=== PATIENT | male | born 1980 | race Caucasian/White ===

== ENCOUNTER 2022-09-17 09:49 | Outpatient (REF) | payer BC, SELFPAY ==
[2022-09-17 11:18] LABS: MANUAL DIFF FLAG NO
[2022-09-17 11:28] LABS: Basophils Percent Auto 0.3 % (0-2); Eosinophils Absolute Auto 0.1 X10*3/uL (0.0-0.4); Eosinophils Percent Auto 1.9 % (0-4); Hematocrit 41.7 % (42.0-52.0); Imm Gran Abs Auto 0.01 X10*3/uL (0.00-0.03); Imm Gran Pct Auto 0.2 % (0.0-0.4); Lymphocytes Percent Auto 31.5 % (20-40); Mean Corpuscular HGB Conc 33.6 g/dl (31.0-36.0); Mean Corpuscular Hemoglobin 28.3 pg (27.0-33.0); Mean Corpuscular Volume 84.4 fL (80.0-98.0); Mean Platelet Volume 11.8 fL (9.4-12.4); Monocytes Absolute Auto 0.5 X10*3/uL (0.1-1.2); Monocytes Percent Auto 7.9 % (2-11); Neutrophils Absolute Auto 3.6 x10*3/uL (2.0-8.3); Neutrophils Percent Auto 58.2 % (45-73); Platelet Count 187 X10*3/uL (160-400); Red Blood Count 4.94 X10*6/uL (4.60-5.80); Red Cell Distribution Width 13.3 % (11.0-16.0); White Blood Count 6.2 X10*3/uL (4.8-10.8)
[2022-09-17 12:44] LABS: Alanine Aminotransferase 20 U/L (0-40); Albumin Level 4.6 g/dL (3.5-5.0); Alkaline Phosphatase 52 U/L (39-117); Anion Gap 16 (12-20); Aspartate Amino Transferase 20 U/L (5-37); Bilirubin Total 0.6 mg/dL (0.0-1.0); Blood Urea Nitrogen 20 mg/dL (9-16); Calcium 9.6 mg/dL (8.4-10.2); Carbon Dioxide 27 mmol/L (22-29); Chloride 105 mmol/L (96-108); Cholesterol 211 mg/dL; Estimated Glomerular Filt Rate > 60; Glucose Random 85 mg/dL (60-115); HDL Cholesterol 54 mg/dL; LDL Cholesterol Calculated 142 mg/dl; Potassium 4.6 mmol/L (3.3-5.1); Sodium 143 mmol/L (135-145); Total Protein 7.6 g/dL (6.5-8.0); Triglycerides 78 mg/dL
== END 2022-09-17 09:50 | disposition home or self-care (01) ==
LOC: HO.MANLDS 09:49
PROVIDERS: Visit Provider Internal Medicine
DX: Z13.220 Encounter for screening for lipoid disorders (principal)
CPT/HCPCS: 36415; 80053; 80061; 85025

== ENCOUNTER 2023-02-18 09:54 | Outpatient (REF) | payer BC, SELFPAY ==
--- NOTE | ~2023-02-18 | XR_ITS ---
EXAMINATION: XR ANKLE, LEFT CLINICAL INFORMATION: Chronic pain. COMPARISON: None available. TECHNIQUE: AP, lateral, and mortise views of the left ankle. FINDINGS: Bony mineralization is normal. The ankle mortise is intact. 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 A syndesmotic screw is seen traversing the distal tibia and fibula. No fracture, dislocation is seen. There is a moderate joint effusion. A crescentic loose body is seen anteriorly within the left ankle joint space. A sclerotic benign bone island is incidentally seen within the distal left tibial metaphysis. Boehler's angle is normal. There is no calcaneal spur. The soft tissue planes are unremarkable. XR/XR ankle LT min 3V IMPRESSION: 1. No fracture or dislocation is seen. 2. There is a moderate left ankle joint effusion, and a loose body is suspected anteriorly within the left ankle joint space. 3. 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 4. A syndesmotic screw is noted, as detailed.
== END 2023-02-18 09:55 | disposition home or self-care (01) ==
LOC: HO.XRAY 09:54
PROVIDERS: PCP Internal Medicine; Visit Provider Internal Medicine
DX: S82.842A Displaced bimalleolar fracture of left lower leg, initial encounter for closed fracture (principal)
CPT/HCPCS: 73610